=== PATIENT | female | born 1950 | race Caucasian/White ===

== ENCOUNTER 2022-02-22 11:00 | Outpatient (RCR) | payer MEDICARE, SELFPAY ==
--- NOTE | 2021-08-25 09:57 | HP.OTEVAL_ITS ---
Patient's Visit Information FOUZIA BARRON is a 70 year old F, referred to Occupational Therapy by Alem Clark, TAD-C, with a diagnosis of CVA left hand weakness. Date of Evaluation: 08/24/21 Occupational Therapist: Elinor Pepe, KEVINR/Earnestine, CHT - Subjective This 70 year old female was seen for OT eval with dx of CVA. pt states her stroke happened Jan 22 2020. The stroke affected her left side- pt is right handed. pts spouse is with her today- stated her neurologist did Botox injections. that has helped decrease her tone. pt states she returns to him for more Botox. pts is performing PROM to her left UE daily. pt states they use neuro muscular stim unit 3 days a week for about 15 min- 10 min on shoulder and 5 min to her forearm. pt is working with t-bands-. pt states she would like to use her hand again for typing and playing the piano, sewing, cooking and dishes. pt states she finished PT end of Jun. due to insurance limitations. - ADLs Comments: pts spouse helps her with bathing and dressing. pt lives in two story home - Movement Muscle Tone: left UE high tone grossly throughout UE shoulder/elbow/wrist and ditis Movement Comments: pt significant tone limiting movement of left UE and use for ADls and IADs - Quick DASH-Disab of Arm,Shoulder& Hand Quick DASH Score: 70.4525 - Rehabilitation General Assessment: pt demo LUE weakness and high tone grossly throughout increasing pts need of assistances with ADls and IADLs. Pt would benefit from skilled OT services 2x week for 4 weeks to assist pt and family to decrease tone of left UE and initiate movement patters for ADls and IADLs. Rehabilitation Potential: Fair - Anticipated Interventions A/AAROM/PROM, Strengthening, Neuro Reeducation, Caregiver Training, Home Program - Visit Plan Frequency: 1-2x /Week Duration: 6 Weeks TEXT: Thank you for the opportunity to evaluate your patient. For Medicare and Medicare HMO plans, please review the plan of care and approve it. It will need to be FAXED BACK to us at [phone] for Medicare purposes. Please let me know if there are questions or concerns regarding this plan of care. Physician Signature: Date:
--- NOTE | 2021-08-30 11:57 | HP.OTEVAL_ITS ---
Patient's Visit Information FOUZIA BARRON is a 70 year old F, referred to Occupational Therapy by Alem Clark, TAD-Daisha, with a diagnosis of CVA left hand weakness. Date of Evaluation: 08/24/21 Occupational Therapist: Elinor Pepe, JOSEMANUEL/Earnestine, CHT - Subjective This 70 year old female was seen for OT eval with dx of CVA. pt states her stroke happened Jan 22 2020. The stroke affected her left side- pt is right handed. pts spouse is with her today- stated her neurologist did Botox injections. that has helped decrease her tone. pt states she returns to him for more Botox. pts is performing PROM to her left UE daily. pt states they use neuro muscular stim unit 3 days a week for about 15 min- 10 min on shoulder and 5 min to her forearm. pt is working with t-bands-. pt states she would like to use her hand again for typing and playing the piano, sewing, cooking and dishes. pt states she finished PT end of Jun. due to insurance limitations. - ADLs Comments: pts spouse helps her with bathing and dressing. pt lives in two story home - ROM Shoulder: right WNL left tone limits functional ROM PROM 100* Elbow: right WNL left tone limits full functional ROM PROM -20/130 Forearm: right WNL left tone limits full functional ROM of supination 0 ROM Comments: tone limited left UE AROM and tone limits end range of left UE motion - Strength Strength Comments: right UE 5/5 - Movement Muscle Tone: left UE high tone grossly throughout UE shoulder/elbow/wrist and ditis Movement Comments: pt significant tone limiting movement of left UE and use for ADls and IADs - Quick DASH-Disab of Arm,Shoulder& Hand Quick DASH Score: 70.4525 - Goals Goal:: Pt will demo a increase in left UE active ROM by 50% to increase pts ind. with ADLS and IADLS. pt will demo left finger rom to perform a grasp/release of left hand on med. and large objects to increase use of left UE as assistive arm by d/c Goal:: pt will demo fluid finger mobility to initiate typing and playing the piano by d/c Goal:: pt will demo a reduction in tone to Min in left UE to increase pts ability to perform AROM by d/c Goal:: pt and pts family will demo understanding of using brace to decrease tone of digits and wrist by end of 3rd session. - Rehabilitation General Assessment: pt demo LUE weakness and high tone grossly throughout increasing pts need of assistances with ADls and IADLs. Pt would benefit from skilled OT services 2x week for 4 weeks to assist pt and family to decrease tone of left UE and initiate movement patters for ADls and IADLs. pt would benefit from skilled OT services 1-2x week for 4 weeks to ed. and work on left UE to decrease tone- increase movement for to reach maximal rehab potential. pt and pts spouse agree with POC. Rehabilitation Potential: Fair - Anticipated Interventions A/AAROM/PROM, Strengthening, Neuro Reeducation, Caregiver Training, Home Program - Visit Plan Frequency: 1-2x /Week Duration: 6 Weeks TEXT: Thank you for the opportunity to evaluate your patient. For Medicare and Medicare HMO plans, please review the plan of care and approve it. It will need to be FAXED BACK to us at [phone] for Medicare purposes. Please let me know if there are questions or concerns regarding this plan of care. Physician Signature: Date:_
--- NOTE | 2021-09-29 11:34 | OTREVAL_ITS ---
Alem Clark, [employer], It has been my pleasure to treat FOUZIA BARRON over the last 8 visits for CVA left hand weakness. Please see the progress note below for an update on the occupational therapy plan of care! Subjective: pt arrives to session - states she is performing her HEP- along with the mirror therapy- pt states she received Botox in shoulder, elbow ,volar forearm for fingers Dec. 30- pt states she has noticed her shoulder is not feeling as tight. Objective/Function: Pt cont to improve with shoulder ROM and strength, wrist ROM and finger flexion, pt able to tap all fingers and thumb on tabletop, all this has been an improvement since she started here. Pt had no AROM at evaluation and currently noted elbow flex/ext and shoulder flex 45*. pt would benefit from continue OT services 2-3x week for 10 weeks. Plan Frequency: 1-2x /Week Duration: 10 weeks Visits in this POC: 20 Plan: cont tx Goals - Goals Patient Goals: Regain Mobility, Use Hand/Wrist/Arm Normally Again, Be More Independent in ADLS, Decrease Muscle Tone Goal:: Pt will demo a increase in left UE active ROM by 50% to increase pts ind. with ADLS and IADLS. pt will demo left finger rom to perform a grasp/release of left hand on med. and large objects to increase use of left UE as assistive arm by d/c Goal:: pt will demo fluid finger mobility to initiate typing and playing the piano by d/c pt has noted IF and thumb isolated movement. Goal:: pt will demo a reduction in tone to Min in left UE to increase pts ability to perform AROM by d/c. noted wrist and digit tone is min at this time- elbow mod and shoulder MOD. Goal:: pt and pts family will demo understanding of using brace to decrease tone of digits and wrist by end of 3rd session. goal met Anticipated Interventions Anticipated Interventions: A/AAROM/PROM, Strengthening, Neuro Reeducation, Caregiver Training, Home Program Please do not hesitate to contact me at [phone] by phone or if you have questions or concerns regarding this new plan of care! Sincerely, Elinor Pepe, OTR/L, CHT
--- NOTE | 2021-10-05 17:00 | HP.PTEVAL ---
Patient's Visit Information FOUZIA BARRON is a 70 year old F referred to Physical Therapy by HARMAN Jacobo with a diagnosis of CRAMPS AND MUSCLE SPASMS. Date of Evaluation: 10/05/21 Physical Therapist: Owen Lomeli, PT, Cert MDT, OCS - Visit Plan Frequency: 2x /Week Duration: 6 Weeks Plan: CVA LEFT SIDE WEAKNESS JANUARY 2021. PT INTERVENTIONS WITH PROGRESSIVE GAIT TRAINING,BALANCE TRAINING,ENDURANCE TARINING ,LLE FLEXABLITY /STRENGTHENING AND FUNCTIONAL STRENGTHENING - Subjective This 70m y/o female presents to physical therapy with CVA left side weakness. Patient had a stroke affecting left side January. Patient had PT last year. Patient most recently seen DR and recommended PT to improve walking. Patient uses cane at home. Patient doing steps at home. Patient has pain in right hip knee with walking. Patient denies paresthesia/tingling. Patient requires assist with bathing dressing per spouse. Spouse does cooking/cleaning/laundry. Home situation 2 story with 3 steps with rails. Patient has 14 steps 2nd floor with railing. Bath is tube shower with seat. Patient condition with CVA impairs ADLS and walking. Patient has botox in arm shoulder. Patient goals to improve walking with cane. SOCAIL: . VOCATION: retired - Objective POSTURE: rounded shoulders posterior pelvic tilt. GAIT: Ambulates with cane with increase tone and control LLE knee flexion with decrease step length and ROBERT. NEURO : increase tonicity LLE ,flexor synergy JUAN CARLOS and ankle. BALANCE: fair + with cane. PROM: left knee and hip. MMT: LLE quads/hams 4-/5,hip flexion 3+/5,hip abduction 3/5 ,ankle 4-/5. FLEXABLITY: hamstrings mod tight. STAIRS: Patient ascend/descend steps with rail/cane SBA - Balance/Special Test Scores CATSIB Score (Max score 120 seconds): 55 Lower Extremity Functional Score: 12 - Goals Goal 1:: I with HEP for gait and balance Goal Time Frame: 4-6 Weeks Goal 2:: Patient to improve gait with cane with improved gait pattern community distance to walk to store Goal Time Frame: 4-6 Weeks Goal 3:: Patient improve LFES score by 5 points to improve gait and function. Goal Time Frame: 4-6 Weeks Goal 4:: Patient improve CATSIB by 5-8 points to improve balance Goal Time Frame: 4-6 Weeks Goal 5:: Patient improve ability to participate in ADLS' 50% of the time at home Goal Time Frame: 4-6 Weeks - Rehabilitation Potential Physical Therapy Diagnosis: This patient has CVA with left side weakness with increase tonicity LUE /LE impair function ,weakness LLE causes impairments with gait ,balance and ADLS' thus benefit from skilled PT Rehabilitation Potential: Good - Anticipated Interventions Patient/Client Instruction: Educate patient on: Condition, Plan of Care For the Purpose of:: To increase ROM, To improve muscle performance and motor function, To improve ability to perform ADL's, To increase tolerance to activity/condition/position, To improve performance and independence with ADL's, To decrease level of supervision to perform tasks, To improve ability of physical actions for home/community/work/leisure, To improve gait and locomotor functions, To improve endurance, To improve balance, To assume or resume ADL's, To improve tolerance to ADL's Therapeutic Exercise to Include: Strength training, Endurance training, Balance training, Coordination, Flexibilty training, Gait and locomotor training, Passive ROM, Active ROM Comment: LLE For the Purpose of:: To increase ROM, To improve muscle performance and motor function, To improve ability to perform ADL's, To increase tolerance to activity/condition/position, To improve performance and independence with ADL's, To decrease level of supervision to perform tasks, To improve ability of physical actions for home/community/work/leisure, To improve gait and locomotor functions, To improve endurance, To improve balance, To improve safety with gait, To assume or resume ADL's, To improve tolerance to ADL's Thank you for the opportunity to evaluate your patient. For Medicare and Medicare HMO plans, please review the plan of care and approve it. It will need to be FAXED BACK to us at [phone] for Medicare purposes. For Medicare only, by signing this I certify the plan of care. Please let me know if there are questions or concerns regarding this plan of care. Physician Signature: Date:
--- NOTE | 2021-11-17 10:55 | HP.PTREVAL ---
Alem Clark, TAD-C, It has been my pleasure to treat FOUZIA BARRON over the last 10 visits for CRAMPS AND MUSCLE SPASMS. Please see the progress note below for an update on the physical therapy plan of care! Subjective: Doing much better with my gait with your help Objective/Function: POSTURE: mild forward posture. GAIT: ambulates with cane with decrease control LLE and LUE in flexor synergy. BALANCE: FAIR+. TOME: INCREASE TOME LLE. MMT: 4-/5 QUADS/HAMS/HIP Plan Plan: CVA LEFT SIDE WEAKNESS JANUARY 2021. PT INTERVENTIONS WITH PROGRESSIVE GAIT TRAINING,BALANCE TRAINING,ENDURANCE TARINING ,LLE FLEXABLITY /STRENGTHENING AND FUNCTIONAL STRENGTHENING Balance/Gait/Functional tests - Balance/Special Test Scores CATSIB Score (Max score 120 seconds): 95 Lower Extremity Functional Score: 32 Goals Goal 1:: I with HEP for gait and balance Goal Time Frame: 4-6 Weeks Goal Progress: Progressing Goal 2:: Patient to improve gait with cane with improved gait pattern community distance to walk to store Goal Time Frame: 4-6 Weeks Goal Progress: Progressing Goal 3:: Patient improve LFES score by 5 points to improve gait and function.( NEW GOAL) Goal Time Frame: 4-6 Weeks Goal 4:: Patient improve CATSIB by 5-points to improve balance.( NEW GOAL) Goal Time Frame: 4-6 Weeks Goal Progress: Progressing Goal 5:: Patient improve ability to participate in ADLS' 50% of the time at home Goal Time Frame: 4-6 Weeks Goal Progress: Progressing Anticipated Interventions Patient/Client Instruction: Educate patient on: Condition, Plan of Care For the Purpose of:: To increase ROM, To improve muscle performance and motor function, To improve ability to perform ADL's, To increase tolerance to activity/condition/position, To improve performance and independence with ADL's, To decrease level of supervision to perform tasks, To improve ability of physical actions for home/community/work/leisure, To improve gait and locomotor functions, To improve endurance, To improve balance, To assume or resume ADL's, To improve tolerance to ADL's Therapeutic Exercise to Include: Strength training, Endurance training, Balance training, Coordination, Flexibilty training, Gait and locomotor training, Passive ROM, Active ROM Comment: LLE For the Purpose of:: To increase ROM, To improve muscle performance and motor function, To improve ability to perform ADL's, To increase tolerance to activity/condition/position, To improve performance and independence with ADL's, To decrease level of supervision to perform tasks, To improve ability of physical actions for home/community/work/leisure, To improve gait and locomotor functions, To improve endurance, To improve balance, To improve safety with gait, To assume or resume ADL's, To improve tolerance to ADL's Please do not hesitate to contact me at [phone] by phone or if you have questions or concerns regarding this new plan of care! Sincerely, Owen Lomeli, PT, Cert MDT, OCS
--- NOTE | 2021-12-27 11:08 | HP.PTDCSUM ---
It has been my pleasure to treat FOUZIA BARRON referred by HARMAN Jacobo, with the diagnosis of CRAMPS AND MUSCLE SPASMS for a total of 20 visit(s). Discharge Date: 12/27/21 Please see the following information for a summary of their discharge status. Subjective: READY FOR D/C % Improvement: 80 Objective/Function: POSTURE: mild forward posture. GAIT: ambulates with QC. BALANCE: FAIR+ NO DEVICE. MMT: RIGHT 4/5,LEFT 4/5 HIP 4-/5 Goal 1:: I with HEP for gait and balance Goal Progress: Goal Met Goal 2:: Patient to improve gait with cane with improved gait pattern community distance to walk to store Goal Progress: Goal Met Goal 3:: Patient improve LFES score by 5 points to improve gait and function.( NEW GOAL) Goal Progress: Goal Met Goal 4:: Patient improve CATSIB by 5-points to improve balance.( NEW GOAL) Goal Progress: Goal Met Goal 5:: Patient improve ability to participate in ADLS' 50% of the time at home Goal Progress: Goal Met Plan: D/C TO HEP If there are questions or concerns regarding this patient's physical therapy, please feel free to call me at [phone]. Thank you for the referral of this patient. Sincerely, Owen Lomeli, PT, Cert MDT, OCS Balance/Gait/Functional tests - Balance/Special Test Scores CATSIB Score (Max score 120 seconds): 120 Lower Extremity Functional Score: 42
--- NOTE | 2021-12-28 08:29 | HP.OTREVAL ---
Alem Clark, TAD-C, It has been my pleasure to treat FOUZIA BARRON over the last 20 visits for CVA left hand weakness. Please see the progress note below for an update on the occupational therapy plan of care! Subjective: pt. arrived with . Pt. stating she is unable to sleep with elbow extension brace. Brought both braces. Objective/Function: L shoulder on eval left tone limits functional ROM PROM 100* and on this date while pt was in supine position pt. had 20 * of AROM. L elbow on eval left tone limits full functional ROM PROM -20/130, on this date pt. had active elbow ext -110 degrees when passively completed pt. is at -20 degrees extension. October 18, 2021 pt. was able to complete two way radio technician strength, L two way radio technician strength 9# , R two way radio technician 54#. L Lat pinch 2#. pt has made improvements toward her goals and would benefit from continuations of OT services 2x week 4 weeks Plan Frequency: 2x /Week Duration: 4 Weeks Visits in this POC: 20 Plan: This S/OT will request for continued services from insurance [employer]. Continue with LUE AAROM/PROM, L hand exercises for ROM and strengthening to use L hand functionally with ADL's.. Goals - Goals Patient Goals: Regain Mobility, Use Hand/Wrist/Arm Normally Again, Be More Independent in ADLS, Decrease Muscle Tone Goal:: Pt will demo a increase in left UE active ROM by 50% to increase pts ind. with ADLS and IADLS. 12-19-21 Pt. stating she feels her LUE is 45% better. pt will demo left finger rom to perform a grasp/release of left hand on med. and large objects to increase use of left UE as assistive arm by d/c 12-19-21 pt. is able to grasp items, but unable to release without assist form R hand. Goal:: pt will demo fluid finger mobility to initiate typing and playing the piano by d/c pt has noted IF and thumb isolated movement. 12-19-21 pt. has not met this goal, does not have tapping movement and has difficulty isolating finger movements. Goal:: pt will demo a reduction in tone to Min in left UE to increase pts ability to perform AROM by d/c. noted wrist and digit tone is min at this time- elbow mod and shoulder MOD. 12-19-21 pt. has increased tone when not relaxed and during movement of LUE. Goal:: pt and pts family will demo understanding of using brace to decrease tone of digits and wrist by end of 3rd session. goal met. 12-19-21 pt. stating she had stopped using resting hand splint at night, this S/OT re-educated pt. & spouse on the purpose of the resting hand splint at night. Anticipated Interventions Anticipated Interventions: A/AAROM/PROM, Strengthening, Neuro Reeducation, Caregiver Training, Home Program Please do not hesitate to contact me at [phone] by phone or if you have questions or concerns regarding this new plan of care! Sincerely, Elinor Pepe OTR/L, CHT
--- NOTE | 2022-02-23 08:06 | HP.OTDCSUM_ITS ---
It has been my pleasure to treat FOUZIA BARRON under orders from HARMAN Jcaobo, for the diagnosis of CVA left hand weakness for a total of 12 visit(s). Please see the following information for a summary of their discharge status. % Improvement: 70 Objective/Function: L should flex 10*. L elbow -57 with assist/140. L hand 20 */30. L digits will come out of composite fist with elbow in extension and with S/OT assist. pt. has completed LUE ROM exercises, stretching, HEP, and using resting hand splint at night to prevent contractures. Patient Goals: Regain Mobility, Use Hand/Wrist/Arm Normally Again, Be More Independent in ADLS, Decrease Muscle Tone Goal:: Pt will demo a increase in left UE active ROM by 50% to increase pts ind. with ADLS and IADLS. 12-19-21 Pt. stating she feels her LUE is 45% better. pt will demo left finger rom to perform a grasp/release of left hand on med. and large objects to increase use of left UE as assistive arm by d/c 12-19-21 pt. is able to grasp items, but unable to release without assist form R hand. Goal:: pt will demo fluid finger mobility to initiate typing and playing the piano by d/c pt has noted IF and thumb isolated movement. 12-19-21 pt. has not met this goal, does not have tapping movement and has difficulty isolating finger movements. Goal:: pt will demo a reduction in tone to Min in left UE to increase pts ability to perform AROM by d/c. noted wrist and digit tone is min at this time- elbow mod and shoulder MOD. 12-19-21 pt. has increased tone when not relaxed and during movement of LUE. Goal:: pt and pts family will demo understanding of using brace to decrease tone of digits and wrist by end of 3rd session. goal met. 12-19-21 pt. stating she had stopped using resting hand splint at night, this S/OT re-educated pt. & spouse on the purpose of the resting hand splint at night. Plan: DC Discharge Comments: Pt. feels as though she has improved by 70% since day of eval. Quick dash 41. She has attended 32 OT visits. Goals related to L hand function have not been met, pt. did report that when her hand is in the resting hand splint she is able to tap her fingers. Spouse understands HEP. Pt. & spouse both reporting that the HEP/stretching is being completed daily at least once. Pt. has tone throughout her LUE, she does receive botox injections and has been more pliable with movement at times. Pt. has plateaued without progress. pt d/c with her HEP at this time- If there are questions or concerns regarding this patient's occupational therapy, please fell free to call me at [phone]. Thank you for the referral of this patient. Sincerely, Elinor Pepe, OTR/L, CHT
== END 2022-02-22 19:00 | disposition home or self-care (01) ==
LOC: OT 11:00
PROVIDERS: PCP Nurse Practitioner Primary Care; Referring Provider Nurse Practitioner Primary Care; Visit Provider Nurse Practitioner Primary Care
DX: R25.2 Cramp and spasm (principal)
CPT/HCPCS: 97012; 97110; 97112; 97116; 97162; 97166; 97530; 97760

== ENCOUNTER 2022-06-13 15:00 | Outpatient (RCR) | payer MEDICARE, SELFPAY ==
--- NOTE | 2022-04-17 07:30 | HP.OTEVAL ---
Patient's Visit Information FOUZIA BARRON is a 71 year old F, referred to Occupational Therapy by TRINA TITUS, with a diagnosis of CVA left UE spastic hemiplegia. Date of Evaluation: 04/16/22 Occupational Therapist: Elinor Pepe, OTR/[place], CHT - Subjective This 71 year old female was seen for OT eval with dx of left spastic hemiplegia (stroke Jan 22 2020) - pt states she had 8 Botox injection April [address]. Pt [address] Eduardo NUNEZ. pt points to flexor tendons/extensor tendon of her left forearm - shoulder- pt states she feels this has improved. pt returns May.25 for follow up- pt has resting hand brace and wearing at night. pt states she is doing her exercise with her 1x a day- but she tries to work her hand and stretch her self. - ROM Shoulder: right WNL left shoulder flex unable shoulder abd 20* /PROM 90* Elbow: right WNL left -80/120 Forearm: right WNL left limited ROM Comments: pt demo with fisted left hand with PROM and AAROM -. pt is using night resting hand/wrist brace. supine on mat pt demo AAROM of left shoulder to 120*. supine on mat pt demo left elbow ext at -50*. pt demo with no functional grasp release at this time - Strength Public Works Supervisor: right 55# left 10# Lateral Pinch: right 6# left unable Tripod Pinch: right 8# left unable - Sensation Sensation Comments: left side diminished sensation - Movement Muscle Tone: left UE shoulder/elbow max tone forearm mod tone digits mod tone - Quick DASH-Disab of Arm,Shoulder& Hand Quick DASH Score: 72.7250 - Goals Goal:: pt will demo a increase in PROM of left shoulder by 30* and left elbow ext by 20* indicating a decrease in spastic tone following Botox in 4 weeks. pt while supine on mat will demo left shoulder flex to 100* without compensatory quentin. by d/c. pt while supine on mat will demo the ability to extend elbow to-10* or less indication of a decrease spastic tone by d/c Goal:: pt and spouse will demo understanding of HEP to decrease spastic tone in left UE by d/c. pt will demo understanding of using resting hand brace at night and at times during the day to decrease tone of flexors of left hand/wrist to decrease risk of contractures by 2nd visit. Goal:: pt and spouse will demo understanding of her HEP by end of 3rd session to prevent left UE contractures - Rehabilitation General Assessment: Pt is well known to this facility as she was seen in OT therapy services last year and the first 6 months of this year. Pt continues to struggle with limited left shoulder ROM and tone limits a fluid left elbow movement patter- pts spouse is receptive to reviewing HEP to assist pt in reaching maximal rehab potential- pt is dependent on spouse for ADLs and IADLS. pt would benefit from skilled OT services 1-2xweek for 4-6 weeks to ensure proper understanding of HEP. Due to pts high co-pay they are possibly going to attend 1x week or every other week to ensure they are performing HEP correctly. PT and pts spouse demo understanding and receptive to POC. Rehabilitation Potential: Questionable - Anticipated Interventions A/AAROM/PROM, Neuro Reeducation, ADL Training, Education re assistive Equipment, Education re Diagnosis, Caregiver Training, Home Program - Visit Plan Frequency: 1-2x /Week Duration: 4-6 Weeks TEXT: Thank you for the opportunity to evaluate your patient. For Medicare and Medicare HMO plans, please review the plan of care and approve it. It will need to be FAXED BACK to us at [phone] for Medicare purposes. Please let me know if there are questions or concerns regarding this plan of care. Physician Signature: Date:
--- NOTE | 2022-08-23 08:08 | HP.OTDCNRP_ITS ---
FOUZIA BARRON was seen in my office for initial evaluation on 04/16/22. The following Plan of Care was established for this patient: pt having another cortisone shot in Sep for UE. pt reports she has been performing her HEP. Therapy will D/c pt with HEP at this time. Initial Frequency: 1-2x /Week Initial Duration: 4-6 Weeks Plan: AAROM. Cont w/[place] Flex Anticipated Interventions: A/AAROM/PROM, Neuro Reeducation, ADL Training, Education re assistive Equipment, Education re Diagnosis, Caregiver Training, Home Program This patient was last seen in our office . Pertinent comments regarding their Occupational therapy will appear below: At this point I will be discontinuing this patient from occupational therapy. I would be happy to see this patient again in the future if found appropriate by the physician. Thank you! Elinor Pepe, OTR/L, CHT
== END 2022-06-13 19:00 | disposition home or self-care (01) ==
LOC: OT 15:00
PROVIDERS: PCP Nurse Practitioner Primary Care
DX: G81.14 Spastic hemiplegia affecting left nondominant side (principal)
CPT/HCPCS: 97110; 97112; 97166; 97167; 97530

== ENCOUNTER 2023-05-13 10:30 | Outpatient (RCR) | payer MEDICARE, SELFPAY ==
--- NOTE | 2022-10-29 14:11 | HP.OTEVAL_ITS ---
Patient's Visit Information FOUZIA BARRON is a 71 year old F, referred to Occupational Therapy by TRINA TITUS, with a diagnosis of L spastic hemiplegia. Date of Evaluation: 10/29/22 Occupational Therapist: Marta Wright - Subjective Pt is a 71 y/o female who presents s/p CVA in January 2020 resulting in L spastic hemiplegia. Pt has been seen at [facility] previously for therapy while also receiving botox injections; this last injection was on October 12 2022 and she reports they were focusing more on the hand in which she has seen improvements. She continues to wear a nighttime resting hand brace; Pt has a high copay and typically was seeing therapists 1x/week - 1x every other week to continue and progress HEP. She would like to cont. therapy every other week to focus on L hand AROM/functional use - ADLs Comments: unable to complete fine motor skills/in hand manipulation at this time; spouse provides assist and patient relies on RUE to maintain as much independence as possible. - Objective Pt presents w/ L spasticity; initiation of movement of flex/extension of all digits- LF most difficult; slight ROM in all directions; difficulty w/ elbow spasticity limiting full extension and flexion; pt can complete isometrics of shoulder and initiate movement - ROM Shoulder: LUE: RUE: WFL Elbow: -75/95 RUE WFL Forearm: LUE: sup -10 RUE: WFL Wrist: L: 20/30 RUE WFL ROM Comments: L hand spasticity; IF/MF/RF w/ initiation of extension LF w/ less extension; thumb IP flexion/extension difficulty w/ CMC movement - Strength Shoulder: 2-/5 generally assessed Elbow: 2/5 generally assessed Wrist: 2/5 generally assessed - Sensation Sensation Comments: diminished L sided sensation - Quick DASH-Disab of Arm,Shoulder& Hand Quick DASH Score: 67.5000 - Goals Goal:: Pt will demo ability to provide early morning babysitter strength >4# in order to progress towards independence w/ ADLS Goal:: Pt will demo ability to complete composite fist and initiate digit extension to within 15% of normal ROM compared to R hand in order to better complete self-care tasks Goal:: Pt will demo ability to create a pincer grasp in order to turkey picker 1 peg from the 9-hole peg board. Goal:: Pt will demo understanding of ongoing HEP compliance - Rehabilitation General Assessment: Pt presents after botox injections with decreased L hand spasticity- pt would like to maximize potential with therapy; OT services would be beneficial to continue progressing pt's HEP in order to maximize function; Rehabilitation Potential: Fair - Anticipated Interventions A/AAROM/PROM, Strengthening, Sensory Retraining, Modalities, Orthoses, Joint Protection/Energy Conservation, Fine Motor Coord/Brent, Neuro Reeducation, ADL Training, Home Program - Visit Plan Frequency: 1x/Week Duration: 2 Months General Plan: Pt would benefit from therapy services for 1x/week for 4-6 weeks to address HEP for tone management, strengthening, ROM, and independence. TEXT: Thank you for the opportunity to evaluate your patient. For Medicare and Medicare HMO plans, please review the plan of care and approve it. It will need to be FAXED BACK to us at [phone] for Medicare purposes. Please let me know if there are questions or concerns regarding this plan of care. Physician Signature: Date:
--- NOTE | 2023-01-21 11:10 | OTREVAL_ITS ---
TRINA TITUS, It has been my pleasure to treat FOUZIA BARRON over the last 7 visits for L spastic hemiplegia. Please see the progress note below for an update on the occupational therapy plan of care! Subjective: pt states she is happy with the placement of the Botox. PT states she feels this session has decreased the tightness in her left shoulder/both anterior/posterior/ biceps/triceps and flexors of her wrist/fingers about 12 shots. pt states throughout she continues with her PROM and performs 1x in am. Objective/Function: pt unable to consistently initially flexion/extension of fingers/thumb; increased time to relax muscles to allow initiation of movements. pt demo mod tone with shoulder at 90* further Max tone but botox will take few weeks get full affect of botox-. pt demo with elbow flexion at 115* extension at -45* MOD tones with PROM. forearm supination max tone and wrist and digit extensors mod tone-. pt and spouse have extensive HEP with AAROM, PROM and stretching-. pt however continues to struggle with tone that increases risk of contractures and skin break down. therapist advised to use resting hand brace at night and 2-3x a day to prevent digit contractures and skin break down- pt and pts spouse demo understanding- advised to leave on for 2 hours each time placing brace on. pt demo understanding. therapist advised to avoid keri muscle groups that cause flexion contractures to allow full affect of medicine. Therapy will ask for date extension as we were only able to get 04/03 approved visits completed. Plan Frequency: 1x/Week Duration: 2 Months Visits in this POC: 12 Plan: pt advised with perform the PROM of left UE 2x a day. wear resting hand brace 2-3x a day + at night. working on extensor components to decrease flexion tone. Goals - Goals Patient Goals: Use Hand/Wrist/Arm Normally Again, Increase ROM, Decrease Muscle Tone Goal:: Pt will demo ability to provide drill doctor strength >4# in order to progress towards independence w/ ADLS ( progressing) Goal:: Pt will demo ability to complete composite fist and initiate digit extension to within 15% of normal ROM compared to R hand in order to better complete self-care tasks ( progressing pt at 10%) Goal:: Pt will demo ability to create a pincer grasp in order to machine operator hop picker 1 peg from the 9-hole peg board. Goal:: Pt will demo understanding of ongoing HEP compliance Anticipated Interventions Anticipated Interventions: A/AAROM/PROM, Strengthening, Sensory Retraining, Modalities, Orthoses, Joint Protection/Energy Conservation, Fine Motor Coord/Brent, Neuro Reeducation, ADL Training, Home Program Please do not hesitate to contact me at [phone] by phone or if you have questions or concerns regarding this new plan of care! Sincerely, Elinor Pepe OTR/L, CHT
--- NOTE | 2023-05-13 11:42 | HP.OTDCSUM_ITS ---
Discharge Summary D/C Summary: It has been my pleasure to treat FOUZIA BARRON under orders from TRINA TITUS, for the diagnosis of L spastic hemiplegia for a total of 8 visit(s). Please see the following information for a summary of their discharge status. Overall Improvement % Improvement: 30 Objective Objective/Function: Wrist with some support to maintain each direction 35/55 Supination: 15* Corrosion Control Engineer strength 3# modified horizontal oracle financials developer Pt unable to isolated pincer grasp to cloth picker peg. pt made little gains at this time toward goals Goals Patient Goals: Use Hand/Wrist/Arm Normally Again, Increase ROM and Decrease Muscle Tone Goal:: Pt will demo ability to provide oracle financials developer strength >4# in order to progress towards independence w/ ADLS ( progressing) Goal:: Pt will demo ability to complete composite fist and initiate digit extension to within 15% of normal ROM compared to R hand in order to better complete self-care tasks ( progressing pt at 10%) Goal:: Pt will demo ability to create a pincer grasp in order to cloth picker 1 peg from the 9-hole peg board. Goal:: Pt will demo understanding of ongoing HEP compliance Plan Plan: Pt and agreeable to discharge at this time. Pt making minimal changes. Pt is following through with all HEP and assists pt as needed. Pt and verbalize no concerns at this time. D/C Information Discharge Comments: Pt has been seen for a total of 14 visits since October 2022. Pt making minimal gains since eval. Patient and is following through with all HEP and assists pt as needed. Pt and verbalize no concerns at this time and agreeable to discharge at this time with continuation of her HEP. d/c sentence: If there are questions or concerns regarding this patient's occupational therapy, please fell free to call me at [phone]. Thank you for the referral of this patient. Sincerely, Elinor Pepe, OTR/L, CHT
== END 2023-05-13 19:00 | disposition home or self-care (01) ==
LOC: OT 10:30
PROVIDERS: PCP Nurse Practitioner Primary Care
DX: G81.12 Spastic hemiplegia affecting left dominant side
CPT/HCPCS: 97035; 97110; 97112; 97140; 97166; 97530

== ENCOUNTER 2023-05-30 06:13 | Day surgery (SDC) | payer MEDICARE, SELFPAY ==
[2023-05-30] VITALS (7 sets, daily range): BP systolic 88–119; BP diastolic 52–73; PULSE 57–89; RESP 16–18; TEMP 36.3–37.4; O2SAT 94–96; BMI 28.6
[2023-05-30] MEDS: Lactated Ringers 1,000 ML 15 ML IV (06:50)
--- NOTE | 2023-05-30 07:24 | PCM.HP.BLA ---
History and Physical Date of Admission: 05/30/23 FOUZIA BARRON, is a 72 F who presents to the office today for a consult. [facility]GI established 7.. PCP OV 5.08.15 for f/u of HTN. Notes possible hemorrhoid with scant amounts of blood following BM and need for screening colonoscopy. History of GERD managed with omeprazole.? Denies any history of GI illness. Denies any family history of GI related illness or cancer. States she wanted to establish with Dr. Meraz to see if her hemorrhoid needs removed prior to colonoscopy. States she has occasional bleeding from the hemorrhoid. States that only GI related history is GERD which is controlled with omeprazole. ROS Const Constitutional: No fatigue, fever(s), frequent falls, headache(s) or weight change ENT ENT: No headache(s) or difficulty swallowing Cardio Cardiology: No leg pain with exertion Gastro GI: No abdominal pain, bloating, change in bowel habits, constipation, diarrhea, heartburn, difficulty swallowing, Vomiting blood/hematemesis, Blood in stool, nausea/dyspepsia or vomiting Musc Musculoskeletal: No abnormal gait, joint pain, back pain, joint swelling, muscle cramps, muscle weakness, numbness, stiffness, tingling, Arthritis, sciatica, leg pain at night or leg pain with exertion Skin Skin: No dry skin, lesions, itchy eyes or rash Neuro Neurology: No abnormal gait, dizziness, frequent falls, headache(s), numbness, tingling, tremor(s), Increased tone in limbs, paralysis or seizures Psych Psychiatric: No anxiety, No depression, No paranoia, No Behavioral Problems, No Compulsive Behavior, No hyperactivity, No inattentiveness, No obsessions/compulsions, No Temper Tantrums and No suicidal ideation Endo Endocrine: No fatigue or weight change Aller/Imm Allergy/Immunologic: No itchy eyes Omer/Lymp Hematologic/Lymphatic: No easy bleeding or easy bruising Exam Const General: cooperative and comfortable Nutritional Appearance: average body habitus and well nourished HENNY Head: normal to inspection Ears: hearing grossly normal bilaterally Nose: external nose normal Face and sinus: normal facial exam Mouth: oral mucosae normal Throat: posterior oropharynx normal Eyes General: appearance normal, both eyes and all related structures Neck Neck: normal visual inspection Chest Chest palpation & inspection: normal inspection of the chest and normal palpation of entire chest wall Resp Effort & Inspection: normal respiratory effort Auscultation: Bilateral: Clear to Auscultation Cardio Palpation: normal PMI Rate: regular rate Rhythm: regular rhythm GI Inspection: normal to inspection Auscultation: normal bowel sounds Percussion: normal to percussion Palpation: no hepatosplenomegaly Skin General: no rashes or lesions noted Neuro General: patient alert Extrem General: normal to inspection Psych Affect: normal affect Quality Reporting Tobacco Screening ([facility] 138) Smoking Status: Never smoker Assessment and Plan Assessment and Plan (1) Encounter for screening colonoscopy: Status: Acute Plan: 72-year-old with unfortunate past medical history of CVA with left-sided weakness who presents for colonoscopy. She also has a history of hemorrhoidal disease. She will undergo colonoscopy with banding of her hemorrhoids. She was explained alternatives, risk, benefits including outstanding bleeding, infection, sepsis, perforation, need for emergent surgery . She will have an ASA of 3. I have examined the patient and the H&P has been reviewed. There are no clinical changes since date of exam.
--- NOTE | 2023-05-30 07:51 | OP.COLON_ITS ---
Patient Name: Socorro Gallagher Procedure Date: 05/30/2023 7:17 AM Date of : 1950 Age: 72 Procedure: Colonoscopy Indications: Screening for colorectal malignant neoplasm Providers: García Meraz DO Referring MD: García Meraz DO Medicines: Monitored Anesthesia Care Patient Profile: This is a 72 year old female. Refer to note in patient chart for documentation of history and physical. Last Colonoscopy: 10 years ago. Complications: No immediate complications. Procedure: Pre-Anesthesia Assessment: - Prior to the procedure, a History and Physical was performed, and patient medications and allergies were reviewed. The patient is competent. The risks and benefits of the procedure and the sedation options and risks were discussed with the patient. All questions were answered and informed consent was obtained. Patient identification and proposed procedure were verified by the physician. Mental Status Examination: normal. Prophylactic Antibiotics: The patient does not require prophylactic antibiotics. Prior Anticoagulants: The patient has taken no anticoagulant or antiplatelet agents. After reviewing the risks and benefits, the patient was deemed in satisfactory condition to undergo the procedure. The anesthesia plan was to use minimal sedation / analgesia (anxiolysis). Immediately prior to administration of medications, the patient was re-assessed for adequacy to receive sedatives. The heart rate, respiratory rate, oxygen saturations, blood pressure, adequacy of pulmonary ventilation, and response to care were monitored throughout the procedure. The physical status of the patient was re-assessed after the procedure. After I obtained informed consent, the scope was passed under direct vision. Throughout the procedure, the patient's blood pressure, pulse, and oxygen saturations were monitored continuously. The Colonoscope was introduced through the anus and advanced to the terminal ileum. The colonoscopy was performed without difficulty. The patient tolerated the procedure well. The quality of the bowel preparation was good. The terminal ileum, ileocecal valve, appendiceal orifice, and rectum were photographed. Scope In: 7:29:48 AM Scope Withdrawal Time 0 hours 7 minutes 18 seconds Scope Out: 7:45:48 AM Total Procedure Duration Time 0 hours 16 minutes 0 seconds Findings: The perianal and digital rectal examinations were normal. Non-bleeding internal hemorrhoids were found during retroflexion. The hemorrhoids were Grade II (internal hemorrhoids that prolapse but reduce spontaneously). A hemorrhoid was isolated with anoscopy. The ShortShot ligator was positioned over the hemorrhoid at the left lateral position. Suction was applied and one rubber band was placed over the hemorrhoid. This was checked to make certain that the muscularis was free of the band. Post-banding digital rectal exam showed band in good position. There were no complications. The entire examined colon appeared normal on direct and retroflexion views. Two small-mouthed diverticula were found in the recto-sigmoid colon. Impression: - Non-bleeding internal hemorrhoids. Banded. - The entire examined colon is normal on direct and retroflexion views. - Diverticulosis in the recto-sigmoid colon. - No specimens collected. Recommendation: - Discharge patient to home. - Resume previous diet. - Continue present medications. - Repeat colonoscopy in 10 years for screening purposes. Procedure Code(s): --- Professional --- 36883, Colonoscopy, flexible; with band ligation(s) (eg, hemorrhoids) CPT copyright 2021 [employer]. All rights reserved. The codes documented in this report are preliminary and upon branch service specialist review may be revised to meet current compliance requirements. García Meraz DO 05/30/2023 7:51:02 AM This report has been signed electronically. Number of Addenda: 0 Note Initiated On: 05/30/2023 7:17 AM
--- NOTE | 2023-05-30 07:51 | OP.CCLET_ITS ---
05/30/2023 Alem Clark Re : Colonoscopy procedure for Socorro Gallagher Dear Eduardo This procedure was performed on May. My impressions and recommendations are as follows: Impressions : - Non-bleeding internal hemorrhoids. Banded. - The entire examined colon is normal on direct and retroflexion views. - Diverticulosis in the recto-sigmoid colon. - No specimens collected. Recommendations : - Discharge patient to home. - Resume previous diet. - Continue present medications. - Repeat colonoscopy in 10 years for screening purposes. My findings are described in the full procedure note, which is enclosed. If I can be of further assistance, please feel free to contact me at . Sincerely, García Meraz, 05/30/2023 7:51:02 AM This report has been signed electronically.
== END 2023-05-30 08:50 | disposition home or self-care (01) ==
LOC: EN 06:14 → AC 06:17
PROVIDERS: PCP Nurse Practitioner Primary Care; Referring Provider Nurse Practitioner Primary Care; Visit Provider Internal Medicine Gastroenterology
PROC: 0DJD8ZZ Inspection of Lower Intestinal Tract, Via Natural or Artificial Opening Endoscopic (ICD-10-PCS; CPT 45378; principal; 2023-05-30 07:10)
DX: Z12.11 Encounter for screening for malignant neoplasm of colon (principal); K64.1 Second degree hemorrhoids; K57.30 Diverticulosis of large intestine without perforation or abscess without bleeding; I10 Essential (primary) hypertension; F32.A Depression, unspecified; E78.00 Pure hypercholesterolemia, unspecified; K21.9 Gastro-esophageal reflux disease without esophagitis; Z86.73 Personal history of transient ischemic attack (TIA), and cerebral infarction without residual deficits; Z79.899 Other long term (current) drug therapy
CPT/HCPCS: 45398; J7120; J2405

== ENCOUNTER 2024-04-20 14:30 | Outpatient (RCR) | payer MEDICARE, SELFPAY ==
--- NOTE | 2023-09-06 07:04 | HP.OTEVAL ---
Patient's Visit Information Visit Information Visit Information: FOUZIA BARRON is a 72 year old F, referred to Occupational Therapy by TRINA TITUS, with a diagnosis of Spastic Hemiplegia of left UE. 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 Pt has been seen at [facility] previously for therapy while also receiving botox injections; this last injection was on Jul 31, 2023 and she reports they were focusing more on the hand in which she has seen improvements. She continues to wear a nighttime resting hand brace; Pt has a high copay and typically was seeing therapists 1x/week - 1x every other week to continue and progress HEP. She would like to cont. therapy every other week to focus on L hand AROM/functional use. pt states she has a new dx of right CTS and right trigger thumb and will have sx 2022 will perform the sx. ADLs Comments: spouse assist pt with all daily tasks (bathing/dressing) ROM ROM Comments: Left shoulder AROM 10* left shoulder flexion PROM 150* mod tone Left elbow AROM -30/95 left elbow PROM 0/145 Mod tone left forearm AROM supination 30* pronation WNL left forearm PROM supination 65* mod tone left wrist AROM 50/55 left wrist PROM 65/65 mod tone digits are extending min at left MF PIP no MCP active ext. min flexion of RF/MF and IF no active LF motion Strength Strength Comments: MMT right UE 5/5 left UE 2/5 strength will be addressed when motion of left UE improves Sensation Sensation Comments: denies Movement Muscle Tone: left shoulder MAX, elbow Mod, Forearm sup Mod tone In-Hand Manipulation Finger to Palm Translation: Normal - Right and Unable - Left Palm to Finger Translation: Normal - Right and Unable - Left Shift: Normal - Right and Unable - Left Rotation: Normal - Right and Unable - Left Quick DASH-Disab of Arm,Shoulder& Hand Quick DASH Score: 70.4525 Goals Goal:: pt will demo a increase in pts fluid AROM of LE to gain 90* shoulder flex to use left UE as assistive UE for dressing and bathing and decrease risk of contracture by d./c pt will demo a increase in fluid grasp/release of let boring machine operator horizontal to hold small and med. size objects to allow left UE use with ADLs by d.c pt will demo a fluid elbow flex/ext to increase use of left UE participation with ADLs by dJannetc Goal:: pt will demo the ability to open close left hand at a fluid motion to increase ind with grasping objects by d/c pt will demo the ability to open close left hand to decrease risk of contractures and skin breakdown by d.c Goal:: pt will report she is using left UE with 75% of dressing task by dJannetc Goal:: pt will demo a decrease in left UE tone to MIN to decrease pts risk of contractures by d/c pt will demo understanding of utilizing bracing to limit contractors of left UE with movement patterns by end of 3rd visit. Goal:: pt and pts spouse will demo understanding of skin care precautions to prevent skin breakdown by end of 3rd visit. Rehabilitation General Assessment: pt demo with a left UE mod-max tone limiting left UE AROM and use of left UE as assistive device. pt high risk of skin break down and contractures of left UE at shoulder/elbow/wrist and had. Pt would benefit from skilled OT services to 1x week for 12 weeks to improve pts left UE AROM to decrease risk of skin breakdown. Assist pt in recovery of left UE to use left UE as assistive UE for participating with ADLS and self care. pt and pts spouse demo understanding and agree to POC. Rehabilitation Potential: Good Anticipated Interventions Anticipated Interventions: A/AAROM/PROM, Strengthening, Orthoses, Fine Motor Coord/Brent, Neuro Reeducation, ADL Training, Education re assistive Equipment, Education re Diagnosis, Caregiver Training and Home Program Visit Plan Frequency: Every Other Week Duration: 3 Months TEXT: Thank you for the opportunity to evaluate your patient. For Medicare and Medicare HMO plans, please review the plan of care and approve it. It will need to be FAXED BACK to us at [phone] for Medicare purposes. Please let me know if there are questions or concerns regarding this plan of care. Physician Signature: Date:
--- NOTE | 2024-03-24 11:50 | HP.OTREVAL ---
Re-Evaluation Intro: TRINA TITUS, It has been my pleasure to treat FOUZIA BARRON over the last 1 visits for Spastic Hemiplegia of left UE. Please see the progress note below for an update on the occupational therapy plan of care! Subjective Subjective: Pt stated no changes since last session. [place] through Botox and feeling it kicking in. Objective Objective/Function: ROM shoulder 30/10, elbow -70/120, w 15/15, mp -50/82, pip +10/65, dip -15/52 tone shoulder- min/mod, tone supination- mod/max, elbow ex mod/max, left side shoulder droop Ambulating w/ straight cane uses wall for support- pt may improve ambulation by using quad cane or eddie walker. Pt continues to struggle w/ use of left UE and would benefit from further skilled therapy due to tone, difficulty with grasp, risk for contractures and skin break down. Plan Plan Frequency: Every Other Week Duration: 3 Months Plan: pt will continue POC every two weeks ensure pt gets handout on forearm sup stretch and NDT technique Goals Goals Patient Goals: Regain Mobility, Use Hand/Wrist/Arm Normally Again, Decrease Muscle Tone and Other Other: decrease risk of skin breakdown decrease risk of contracture Goal:: pt will demo a increase in pts fluid AROM of LE to gain 90* shoulder flex to use left UE as assistive UE for dressing and bathing and decrease risk of contracture by d./c pt will demo a increase in fluid grasp/release of let mononitrotoluene operator to hold small and med. size objects to allow left UE use with ADLs by d.c pt will demo a fluid elbow flex/ext to increase use of left UE participation with ADLs by d.c Goal:: pt will demo the ability to open close left hand at a fluid motion to increase ind with grasping objects by d/c pt will demo the ability to open close left hand to decrease risk of contractures and skin breakdown by d.c Goal:: pt will report she is using left UE with 75% of dressing task by d.c Goal:: pt will demo a decrease in left UE tone to MIN to decrease pts risk of contractures by d/c pt will demo understanding of utilizing bracing to limit contractors of left UE with movement patterns by end of 3rd visit. Goal:: pt and pts spouse will demo understanding of skin care precautions to prevent skin breakdown by end of 3rd visit. Anticipated Interventions Anticipated Interventions Anticipated Interventions: A/AAROM/PROM, Strengthening, Orthoses, Fine Motor Coord/Brent, Neuro Reeducation, ADL Training, Education re assistive Equipment, Education re Diagnosis, Caregiver Training and Home Program Re-Evaluation Ending Re-evaluation ending: Please do not hesitate to contact me at [phone] by phone or if you have questions or concerns regarding this new plan of care! Sincerely, Elinor Pepe, OTR/L, CHT
== END 2024-04-20 19:00 | disposition home or self-care (01) ==
LOC: OT 14:30
PROVIDERS: PCP Nurse Practitioner Primary Care
DX: I69.954 Hemiplegia and hemiparesis following unspecified cerebrovascular disease affecting left non-dominant side (principal)
CPT/HCPCS: 97112; 97166; 97530

== ENCOUNTER → 2024-07-22 | Outpatient (CLI) | payer MEDICARE, SELFPAY ==
[2024-07-22 16:51] LABS: Absolute Lymphocyte Count 2.14 X10^3/uL (0.83-4.51); Absolute Neutrophil Count 4.1 X10^3/uL (2.0-7.7); Basophil# 0.04 X10^3/uL; Basophil% 0.6 % (0-1); Eosinophil# 0.17 X10^3/uL; Eosinophils% 2.4 % (0-5); Hemoglobin 13.2 g/dL (12.0-15.0); Lymphocyte # 2.14 X10^3/ul (0.83-4.51); Lymphocyte % 30.2 % (19-41); Mean Corp Hgb Conc 31.4 g/dL (32-36); Mean Corpuscular Hgb 28.8 pg (27.0-32.0); Mean Corpuscular Volume 91.7 fL (81-99); Mean Platelet Vol. 10.6 fl (6.2-12.0); Monocyte# 0.57 X10^3/uL; Monocyte% 8.1 % (0-10); NRBC Flagged by Analyzer 0 % (0-5); Neutrophil # 4.13 X10^3/uL (2.7-7.7); Neutrophil % 58.3 % (47-70); Platelet Count 279 K/mm3 (150-450); RBC Distribution Width CV 13.6 % (11.6-14.6); RBC Distribution Width SD 46.3 fl (35.1-43.9); Red Blood Count 4.58 M/mm3 (4.2-5.4); White Blood Count 7.1 K/mm3 (4.4-11.0)
[2024-07-22 17:09] LABS: Vitamin D,25 Hydroxy 65.4 ng/mL
[2024-07-22 17:10] LABS: AST(SGOT) 19 U/L (15-37); Alanine Aminotransfer ALT/SGPT 39 U/L (13-56); Albumin, Serum 3.7 g/dL (3.2-5.0); Alkaline Phosphatase 82 U/L (45-117); Anion Gap 4 (5-15); BUN 16 mg/dL (7-18); BUN/Creat Ratio 18.3 RATIO (10-20); Calcium,Total 9.3 mg/dL (8.5-10.1); Chloride 104 mmol/L (98-107); Cholesterol 134 mg/dL (200); Creatinine, Serum 0.87 mg/dL (0.55-1.02); EST Glomerular Filtration Rate 67 mL/min (>60); Est Glom Filt Rate - Afr Amer 82 mL/min (>60); Globulin 3.7 g/dL (2.2-4.2); Glucose 91 mg/dL (74-106); High Density Lipoprotein 41 mg/dL; Potassium 4.3 mmol/L (3.5-5.1); Protein, Total 7.4 g/dL (6.4-8.2); Sodium Level 138 mmol/L (136-145); Triglycerides 180 mg/dL; Very Low Density Lipoprotein 36 mg/dL (5-40)
== END | disposition home or self-care (01) ==
LOC: BIMLAB 14:35
PROVIDERS: PCP Internal Medicine; Referring Provider Internal Medicine; Visit Provider Internal Medicine
DX: M85.80 Other specified disorders of bone density and structure, unspecified site (principal); I10 Essential (primary) hypertension
CPT/HCPCS: 36415; 80053; 80061; 82306; 85025

== ENCOUNTER 2024-09-22 12:30 | Outpatient (RCR) | payer MEDICARE, SELFPAY ==
--- NOTE | 2024-08-13 16:37 | OTREVAL_ITS ---
Re-Evaluation Intro: TRINA TITUS, It has been my pleasure to treat FOUZIA BARRON over the last 10 visits for Spastic Hemiplegia of left UE. Please see the progress note below for an update on the occupational therapy plan of care! Subjective Subjective: doing well no new concerns brings brace with her Plan Plan Plan: Continue POC every two weeks ensure pt gets handout on forearm sup stretch and NDT technique Goals Goals Patient Goals: Regain Mobility, Use Hand/Wrist/Arm Normally Again, Decrease Muscle Tone and Other Other: decrease risk of skin breakdown decrease risk of contracture Goal:: Patient Goals: Regain Mobility, Use Hand/Wrist/Arm Normally Again, Decre ase Muscle Tone and Other Other: decrease risk of skin breakdown decrease risk of contracture Goal:: Pt will demo a increase in pts fluid AROM of LE to gain 90* shoulder flex to use left UE as assistive UE for dressing and bathing and decrease risk of contracture by d./c 08/13: shoulder flexion 40 degrees limited by decreased scapular mobility -- provided exercises Goal:: Pt will demo a increase in fluid grasp/release of let clerk entry level to hold small and med. size objects to allow left UE use with ADLs by dJannetc 08/13: progressing able to do duplo blocks Goal:: Pt will demo a fluid elbow flex/ext to increase use of left UE participation with ADLs by dJannetc 08/13: elbow flexion 130 extension -32 Goal:: Pt will demo the ability to open close left hand at a fluid motion to increase ind with grasping objects by d/c able to open on own passively --- AROM able to get D3-5 open Goal:: Pt will report she is using left UE with 75% of dressing task by d.c ongoing Goal:: Pt will demo the ability to open close left hand to decrease risk of co ntractures and skin breakdown by d.c GOAL MET able to open enough to assure no contracture and using night splint Goal:: Pt and pts spouse will demo understanding of skin care precautions to prevent skin breakdown by end of 3rd visit. GOAL MET Goal:: Pt will demo understanding of utilizing bracing to limit contractors of left UE with movement patterns by end of 3rd visit. 08/13: using resting hand at night -- going to start using oval 8 again for PIPs Goal:: Pt will demo a decrease in left UE tone to MIN to decrease pts risk of contractures by d/c 08/13: pt recently receiving injection and tone currently less ongoing Anticipated Interventions Anticipated Interventions Anticipated Interventions: A/AAROM/PROM, Strengthening, Edema Control, Orthoses, Fine Motor Coord/Brent, Neuro Reeducation, ADL Training, Education re assistive Equipment, Education re Diagnosis, Caregiver Training and Home Program Re-Evaluation Ending Re-evaluation ending: Please do not hesitate to contact me at [phone] by phone or if you have questions or concerns regarding this new plan of care! Sincerely, Rufina Callejas
--- NOTE | 2024-09-22 13:37 | HP.OTDCSUM_ITS ---
Discharge Summary D/C Summary: It has been my pleasure to treat FOUZIA BARRON under orders from TRINA TITUS, for the diagnosis of Spastic Hemiplegia of left UE for a total of 12 visit(s). Please see the following information for a summary of their discharge status. Overall Improvement % Improvement: 90 Objective Objective/Function: L elbow extension -25 from -32 L elbow flexion 130 from 130 L shoulder flexion 35 degrees pt pulls into IR when opening hand able to get D2-4 to move pt is able to manually open digits to assure skin integrity Goals Patient Goals: Regain Mobility, Use Hand/Wrist/Arm Normally Again, Decrease Muscle Tone and Other Other: decrease risk of skin breakdown decrease risk of contracture Goal:: Patient Goals: Regain Mobility, Use Hand/Wrist/Arm Normally Again, Decrease Muscle Tone and Other Other: decrease risk of skin breakdown decrease risk of contracture Goal:: Pt will demo a increase in pts fluid AROM of LE to gain 90* shoulder flex to use left UE as assistive UE for dressing and bathing and decrease risk of contracture by d./c 09/22: limited by decreased scap mobility able to get to approx 35 degrees shoulder flexion ed provided on stretches Goal:: Pt will demo a increase in fluid grasp/release of let pigment making supervisor to hold small and med. size objects to allow left UE use with ADLs by d.c 09/22: grasp and release increased time cues for posture NOT MET Goal:: Pt will demo a fluid elbow flex/ext to increase use of left UE participation with ADLs by d.c 09/22: flexion now 130 and extension -28 able ot bring arm to flexed posture then slowly back into extion with time and cues Goal:: Pt will demo the ability to open close left hand at a fluid motion to increase ind with grasping objects by d/c 09/22:able to open on own passively --- AROM able to get D3-5 open Goal:: Pt will report she is using left UE with 75% of dressing task by dJannetc 09/22/24 ongoing per pt is using it as gross stabilizer Goal:: Pt will demo the ability to open close left hand to decrease risk of contractures and skin breakdown by d.c GOAL MET able to open enough to assure no contracture and using night splint Goal:: Pt and pts spouse will demo understanding of skin care precautions to prevent skin breakdown by end of 3rd visit. GOAL MET Goal:: Pt will demo understanding of utilizing bracing to limit contractors of left UE with movement patterns by end of 3rd visit. GOAL MET 08/13: using resting hand at night -- going to start using oval 8 again for PIPs GOAL MET Goal:: Pt will demo a decrease in left UE tone to MIN to decrease pts risk of contractures by d/c per pt botox wearing off this date however tone heavily depends on when last dos e of botox was Plan Plan: discharge D/C Information Discharge Comments: This 73 year old female seen for dx of spastic hemiplegia. pt with progress made in ROM, tone fluctuated depending on when last botox injection was. education on joint protection positioning as well as bracing and modifications to utilize for improved day to day function. discharge at this time pt to perform all exercises taught during sessions at home and continue with at home estim. pt in agreeance. d/c sentence: If there are questions or concerns regarding this patient's occupational therapy, please fell free to call me at [phone]. Thank you for the referral of this patient. Sincerely, Rufina Clalejas
--- NOTE | 2024-09-22 13:37 | HP.OT.NRP ---
Patient Information Patient Information: FOUZIA BARRON was seen in my office for initial evaluation on . The following Plan of Care was established for this patient: POC Established Plan: discharge Anticipated Interventions Anticipated Interventions: A/AAROM/PROM, Strengthening, Edema Control, Orthoses, Fine Motor Coord/Brent, Neuro Reeducation, ADL Training, Education re assistive Equipment, Education re Diagnosis, Caregiver Training and Home Program Last Seen Last Seen: This patient was last seen in our office 09/22/24. Pertinent comments regarding their Occupational therapy will appear below: This 73 year old female seen for dx of spastic hemiplegia. pt with progress made in ROM, tone fluctuated depending on when last botox injection was. education on joint protection positioning as well as bracing and modifications to utilize for improved day to day function. discharge at this time pt to perform all exercises taught during sessions at home and continue with at home estim. pt in agreeance. At this point I will be discontinuing this patient from occupational therapy. I would be happy to see this patient again in the future if found appropriate by the physician. Thank you! Rufian Callejas
== END 2024-09-22 14:27 | disposition home or self-care (01) ==
LOC: OT 12:30
PROVIDERS: PCP Nurse Practitioner Primary Care
DX: I69.954 Hemiplegia and hemiparesis following unspecified cerebrovascular disease affecting left non-dominant side (principal)
CPT/HCPCS: 97110; 97112; 97140; 97530

== ENCOUNTER → 2024-11-18 | Outpatient (CLI) | payer MEDICARE, SELFPAY ==
[2024-11-18 17:24] LABS: Anion Gap 12 (5-15); BUN 14 mg/dL (4-19); Calcium 9.8 mg/dL (7.6-11.0); Carbon Dioxide 24.9 mmol/L (22.0-29.0); Chloride 102 mmol/L (96-108); Creatinine, Serum 0.8 mg/dL (0.6-1.0); EST Glomerular Filtration Rate 83 (>60); Glucose 97 mg/dL (70-99); Potassium 4.6 mmol/L (3.3-5.1); Sodium Level 138 mmol/L (133-145)
== END | disposition home or self-care (01) ==
LOC: BIMLAB 14:37
PROVIDERS: PCP Internal Medicine; Referring Provider Internal Medicine; Visit Provider Internal Medicine
DX: I10 Essential (primary) hypertension (principal)
CPT/HCPCS: 36415; 80048

== ENCOUNTER → 2024-12-09 | Outpatient (CLI) | payer MEDICARE, SELFPAY ==
--- NOTE | 2024-12-09 15:24 | BD_ITS ---
PROCEDURE: DEXA BONE DENSITY STUDY 12/09/2024 REASON FOR EXAM: Postmenopausal. Osteoporosis screening. TECHNIQUE: DXA scan of the lumbar spine and right hip, using make and model. REFERENCE LINKS: ISCD Adult Positions COMPARISON: None available FINDINGS: BMD and T-SCORES Lumbar spine: (0.860) g/cm2, T-Score -1.7 L1 through L4 Right femoral neck: (0.815) g/cm2, T-Score -0.3 Femoral neck comparison data not recommended for monitoring change. Right total hip: (0.867) g/cm2, T-Score -0.6 Fracture Risk Calculation: See exam for details of tool utilized. 10 Year Probability of Fracture: Major Osteoporotic Fracture: 7.8% Hip Fracture: 0.7% BD/Dexa Bone Density Study IMPRESSION: Osteopenia. Recommend follow-up as clinically warranted. Reading Location: [id number]
--- NOTE | 2024-12-09 15:40 | BI_ITS ---
EXAM: SCRN MAMM (CAD)W/[place] BILAT 12/09/2024 CLINICAL HISTORY: F, Age 73 y/o , BREAST CANCER SCREENING. Sister with breast cancer. History of remote left excisional breast biopsy. BREAST CANCER RISK ASSESSMENT: Not assessed TECHNIQUE: Bilateral screening digital breast tomosynthesis with 2D and 3D images. Computer aided detection. COMPARISON: Prior exam(s) dating back to prior outside study dated September 27, 2023.. FINDINGS: Bilateral Breast Mammographic Findings: No significant masses, calcifications or other abnormalities are identified. TISSUE DENSITY: The breast tissue is composed of scattered area of fibroglandular density. No suspicious masses, areas of developing architectural distortion, or suspicious calcifications. There has been no significant interval change. BI/SCRN MAMM (CAD)W/[place] BILAT IMPRESSION: Right Breast: BIRADS 1 NEGATIVE. Left Breast: BIRADS 1 NEGATIVE. OVERALL FINAL ASSESSMENT: BIRADS 1 NEGATIVE RECOMMENDATION: ROUTINE ANNUAL FOLLOW-UP Bilateral in 1 Year Normal interval followup mammograms are recommended in 12 months. A letter with findings and recommendations will be mailed to the patient. Reading Location: [place] [id number]
== END | disposition home or self-care (01) ==
LOC: OPBD 15:21
PROVIDERS: PCP Internal Medicine; Referring Provider Internal Medicine; Visit Provider Internal Medicine
DX: Z12.31 Encounter for screening mammogram for malignant neoplasm of breast (principal); Z78.0 Asymptomatic menopausal state
CPT/HCPCS: 77063; 77067; 77080

== ENCOUNTER → 2025-07-01 | Outpatient (CLI) | payer MEDICARE, SELFPAY ==
[2025-07-01 18:52] LABS: Hematocrit 37.5 % (37-47); Hemoglobin 12.5 g/dL (12.0-15.0); Immature Granulocytes Count 0.010 X10^3/uL (0.0-0.0); Mean Corp Hgb Conc 33.3 g/dL (32-36); Mean Corpuscular Volume 88.4 fL (81-99); Mean Platelet Vol. 11.0 fl (6.2-12.0); NRBC Flagged by Analyzer 0 % (0-5); Platelet Count 284 K/mm3 (150-450); RBC Distribution Width CV 13.8 % (11.6-14.6); RBC Distribution Width SD 45.1 fl (35.1-43.9); Red Blood Count 4.24 M/mm3 (4.2-5.4); White Blood Count 6.4 K/mm3 (4.4-11.0)
[2025-07-01 19:47] LABS: AST(SGOT) 24 U/L (<=31); Alanine Aminotransfer ALT/SGPT 31 U/L (<=34); Albumin, Serum 4.2 g/dL (3.4-4.8); Alkaline Phosphatase 77 U/L (35-104); Anion Gap 11 (5-15); BUN 13 mg/dL (4-19); BUN/Creat Ratio 16.1 RATIO (10-20); Calcium,Total 9.7 mg/dL (7.6-11.0); Carbon Dioxide 24.0 mmol/L (21.0-32.0); Chloride 100 mmol/L (98-108); Cholesterol 119 mg/dL (<=200); Globulin 3.1 g/dL (2.2-4.2); Glucose 90 mg/dL (70-99); Low Density Lipoprotein Calc. 45 mg/dL; Potassium 4.7 mmol/L (3.3-5.1); Triglycerides 163 mg/dL; Very Low Density Lipoprotein 33 mg/dL (5-40); Vitamin D,25 Hydroxy 54.1 ng/mL (30-100); cholesterol:hdl ratio screen 2.90
== END | disposition home or self-care (01) ==
PROVIDERS: PCP Internal Medicine; Referring Provider Internal Medicine; Visit Provider Internal Medicine
DX: I10 Essential (primary) hypertension (principal); E83.52 Hypercalcemia; E78.5 Hyperlipidemia, unspecified
CPT/HCPCS: 36415; 80053; 80061; 82306; 85025

== ENCOUNTER → 2025-09-06 | Outpatient (CLI) | payer MEDICARE, SELFPAY ==
[2025-09-06 18:31] LABS: CRP < 3.00 mg/L (0.0-3.0)
[2025-09-08 15:08] LABS: ANTINUCLEAR ANTIBODIES DIRECT Positive (Negative); Anti-Chromatin 0.2 AI (0.0-0.9); Anti-Jo <0.2 AI (0.0-0.9); Anti-dsDNA Ab <1 IU/mL (0-9); SJOGREN'S Anti-SS-A test < 0.2 AI (0.0-0.9); SJOGREN'S Anti-SS-B test < 0.2 AI (0.0-0.9)
== END | disposition home or self-care (01) ==
LOC: MTLAB 15:00
PROVIDERS: PCP Internal Medicine; Visit Provider Internal Medicine
DX: M19.90 Unspecified osteoarthritis, unspecified site (principal)
CPT/HCPCS: 36415; 85652; 86038; 86140; 86225; 86235; 86431